=== PATIENT | female | born 1945 | race Caucasian/White ===

== ENCOUNTER → 2016-06-14 | Outpatient (CLI) | payer MEDICARE ==
--- NOTE | 2016-06-14 13:40 | BD ---
EXAMINATION TYPE: MG DEXA axial skeleton. DATE OF EXAM: 06/14/2016 12:32 PM COMPARISON: Prior DEXA bone scan January 16, 2014. CLINICAL HISTORY: post menopausal Height: 5'3 Weight: 127 FRAX RISK QUESTIONS: Alcohol (3 or more units per day): no Family History (Parent hip fracture): yes Glucocorticoids (More than 3mos): no (Ex: prednisone, prednisolone, methylprednisolone, dexamethasone, and hydrocortisone). History of Fracture in Adulthood: no Secondary Osteoporosis: 1. Type 1 Diabetes: no 2. Hyperthyroidism: no 3. Menopause before 45: no 4. Malnutrition: no 5. Chronic liver disease: no Rheumatoid Arthritis: no Current Tobacco Use: no RISK FACTORS HISTORY OF: Family History of Osteoporosis: Postmenopausal woman: MEDICATIONS: Additional Medications: blood pressure, vitamin D Additional History: EXAM MEASUREMENTS: Bone mineral densitometry was performed using the [employer] System. Bone mineral density as measured about the Lumbar spine is: ----- L1-L4(G/cm2): 0.922 T Score Values are as follows: ----- L2: -2.2 ----- L3: -1.6 ----- L4: -2.5 ----- L1-L4:-2.2 Bone mineral density has: Decreased -6.5% since study of: 01/16/2014 Bone mineral density about the R hip (g/cm2): 0.861 Bone mineral density about the L hip (g/cm2): 0.833 T Score values are as follows: -----R Neck: -1.3 -----L Neck: -1.5 -----R Total: -1.8 -----L Total: -1.3 Bone mineral density has: Decreased -8.1% since study of: 01/16/2014 IMPRESSION: Osteopenia (T Score between -2.5 and -1 as noted by T score values persistent low back and both hips. Bone density is decreased or diminished from prior. There is slightly increased risk of fracture and the patient may be considered for treatment. Re-Screen 2-5 years. NOTE: T-SCORE=SD OF THE YOUNG ADULT MEAN.
--- NOTE | 2016-06-14 22:39 | WWHP ---
DATE OF DICTATION: 06/14/2016 CHIEF COMPLAINT: The patient is here for her routine gynecologic exam and mammogram. HISTORY OF PRESENT ILLNESS: This is a 70-year-old G5, P2-1-1-4 with an LMP of 1983. She is status post EVELYN/BSO for benign reasons. The patient is without gynecologic complaints. PAST MEDICAL HISTORY: Chronic hypertension and history of osteopenia. MEDICATIONS: 1. Amlodipine 5/10 one daily. 2. Vitamin D 2000 units daily. ALLERGIES: PENICILLIN, which caused a rash. 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 SOCIAL HISTORY: She denies tobacco, alcohol and drug use. She has been more than 65 years and is retired. Her sister is Jessica Sinha. REVIEW OF SYSTEMS: She has lost about 4 pounds over the last year. She denies respiratory, cardiac or GI problems. She denies maltreatment or falling but did twist an ankle earlier this year. : She denies any significant problems with urinary leakage. PHYSICAL EXAM: Blood pressure 175/92. Height 5 feet 4 inches. Weight 127 pounds. Temperature 98.6, pulse 89. This is a well-developed, well-nourished white female who is alert and oriented x3, in no acute distress. HEENT is within normal limits. NECK: Supple without mass or thyromegaly. CHEST AND LUNGS: Clear to auscultation. HEART: Regular rate and rhythm. Breasts are without mass or discharge. Axillary exam is negative for adenopathy. BACK: Negative for CVA tenderness. ABDOMEN: Soft, nontender, without palpable masses. PELVIC EXAM: External genitalia reveal mild to moderate atrophy without lesions. Vagina reveals mild to moderate atrophy without lesions. There is no evidence of prolapse. Bimanual exam is negative for mass or tenderness. Rectovaginal exam is negative for mass or tenderness and is negative for occult blood. EXTREMITIES: Nontender. IMPRESSION: 1. A 71-year-old menopausal female, status post EVELYN/BSO for benign reasons, with normal gynecologic exam. 2. History of osteopenia. 3. Elevated blood pressure with history of chronic hypertension. PLAN: 1. Pap smears have been discontinued. 2. Self breast examination was discussed. 3. Mammogram will be done today. 4. We discussed her elevated blood pressure. She states she forgot to take her medications and she will do this as soon as possible. She will do home blood pressure monitoring as she has done in the past and follow up with Dr. Brown for elevated blood pressures. 5. Osteoporosis prevention was discussed. Bone density testing will be done today. 6. She does get flu shots in the fall. 7. She will return in one year.
--- NOTE | 2016-06-16 10:35 | MM ---
Reason for exam: screening (asymptomatic). Last mammogram was performed 1 year and 1 month ago. History: Patient is postmenopausal. Family history of breast cancer in maternal cousin and breast cancer in mother at age 75. Excisional biopsy of the left breast. Excisional biopsy of the right breast. Took estrogen for 5 years beginning at age 46. Took progesterone for 2 years beginning at age 46. Physical Findings: A clinical breast exam by your physician is recommended on an annual basis and results should be correlated with mammographic findings. MG 3D Screening Mammo W/Cad Bilateral CC and MLO view(s) were taken. Prior study comparison: May 05, 2015, bilateral MG 3d screening mammo w/cad. January 16, 2014, bilateral MG screening mammo w CAD. December 24, 2012, bilateral digital screening mammo w/CAD. December 23, 2011, bilateral digital screening mammo w/CAD. The breast tissue is heterogeneously dense. This may lower the sensitivity of mammography. No significant changes when compared with prior studies. ASSESSMENT: Negative, BI-RAD 1 RECOMMENDATION: Routine screening mammogram of both breasts in 1 year.
== END | disposition home or self-care (01) ==
LOC: WWCWWP 11:01
PROVIDERS: ATTEND Obstetrics & Gynecology
DX: Z12.31 Encounter for screening mammogram for malignant neoplasm of breast (principal); M85.89 Other specified disorders of bone density and structure, multiple sites
CPT/HCPCS: 77080; 77063; G0202

== ENCOUNTER → 2017-08-01 | Outpatient (CLI) | payer MEDICARE ==
[2017-08-01 13:04] VITALS: BP 152/85; PULSE 98; RESP 18; TEMP 98.4; BMI 22.3
--- NOTE | 2017-08-01 13:26 | P.HPOB ---
History of Present Illness H&P Date: 08/01/17 Chief Complaint: The patient is here for her routine gynecologic exam and mammogram. This is a 72-year-old with an LMP of 1983. She is status post [facility] BSO for benign reasons. The patient is without gynecologic complaints. Review of Systems She is gained 3 pounds over the last year. She denies respiratory, cardiac and G.I. problems. She denies maltreatment or problems with falling. : she denies any significant problems with urinary leakage. Past Medical History Past Medical History: Hypertension Additional Past Medical History / Comment(s): Osteopenia. 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 Colonoscopy 2013(4th). Past Anesthesia/Blood Transfusion Reactions: No Reported Reaction Past Psychological History: No Psychological Hx Reported Smoking Status: Never smoker Past Alcohol Use History: None Reported Past Drug Use History: None Reported Additional History: She is . And is retired. - Past Family History Mother Family Medical History: Cancer (Breast cancer), Diabetes Mellitus Additional Family Medical History / Comment(s): Maternal 1st cousin had breast cancer. Medications and Allergies Home Medications Medication Instructions Recorded Confirmed Type Cholecalciferol [Vitamin D3] 1,000 unit PO DAILY 08/01/17 08/01/17 History amLODIPine BESYLATE/BENAZEPRIL 1 cap PO DAILY 08/01/17 08/01/17 History [amLODIPine BESYLATE/BENAZEPRIL 5-20 mg] Allergies Allergy/AdvReac Type Severity Reaction Status Date / Time Penicillins Allergy Rash/Hives Verified 08/01/17 12:58 Exam - Vital Signs Vital signs: Vital Signs Temp Pulse Resp BP 08/01/17 12:58 98.4 F 98 18 152/85 Intake and Output 07/31/17 08/01/17 08/01/17 22:59 06:59 14:59 Other: Weight 58.967 kg This is a well-developed well-nourished white female who is alert and oriented times 3 in no acute distress. HEENT: Within normal limits. NECK: Supple without mass or thyromegaly. CHEST AND LUNGS: Clear to auscultation. HEART: Regular rate and rhythm. BREASTS: Are without mass or discharge. AXILLARY EXAM: Negative for adenopathy. BACK: Negative for CVA tenderness. ABDOMEN: Soft, nontender, without palpable masses. PELVIC EXAM: External genitalia appears normal with moderate atrophy. Vagina appears normal moderate atrophy. There is no evidence of prolapse. Bimanual examination is negative for mass or tenderness. RECTAL EXAM: Rectovaginal exam is negative for mass or tenderness and is negative for occult blood. EXTREMITIES: Nontender. IMPRESSION: 1. 72-year-old menopausal female status post EVELYN BSO for benign reasons. Normal gynecologic exam. 2. History of osteopenia. PLAN: 1. Pap smears have been discontinued. 2. Self breast awareness was discussed. 3. Screening mammogram will be done today. 4. Osteoporosis prevention was discussed. We will plan a repeating bone density testing in one to 2 years. 5. She does get flu shots in the fall. 6. She will return in one year.
--- NOTE | 2017-08-03 10:43 | MM ---
Reason for exam: screening (asymptomatic). Last mammogram was performed 1 year and 2 months ago. History: Patient is postmenopausal. Family history of breast cancer in maternal cousin and breast cancer in mother at age 75. Excisional biopsy of the left breast. Excisional biopsy of the right breast. Took estrogen for 5 years beginning at age 46. Took progesterone for 2 years beginning at age 46. Physical Findings: A clinical breast exam by your physician is recommended on an annual basis and results should be correlated with mammographic findings. MG 3D Screening Mammo W/Cad Bilateral CC and MLO view(s) were taken. Prior study comparison: June 14, 2016, bilateral MG 3d screening mammo w/cad. May 05, 2015, bilateral MG 3d screening mammo w/cad. The breast tissue is heterogeneously dense. This may lower the sensitivity of mammography. No significant changes when compared with prior studies. ASSESSMENT: Negative, BI-RAD 1 RECOMMENDATION: Routine screening mammogram of both breasts in 1 year.
== END | disposition home or self-care (01) ==
LOC: WWCWWP 12:29
PROVIDERS: ATTEND Obstetrics & Gynecology
DX: Z12.31 Encounter for screening mammogram for malignant neoplasm of breast (principal)
CPT/HCPCS: 77063; 77067

== ENCOUNTER → 2018-07-06 | Outpatient (CLI) | payer MEDICARE ==
[2018-07-06 11:12] LABS: HCT 39.4 % (34.0-46.0); HGB 12.8 gm/dL (11.4-16.0); MCH 30.6 pg (25.0-35.0); MCHC 32.4 g/dL (31.0-37.0); MCV 94.4 fL (80.0-100.0); Platelet Count 238 k/uL (150-450); RBC 4.18 m/uL (3.80-5.40); RDW 12.4 % (11.5-15.5); WBC 6.3 k/uL (3.8-10.6)
[2018-07-06 11:25] LABS: African American GFR (CKD) >90 (>60 ml/min/1.73 sqM); Anion Gap 5 mmol/L; Blood Urea Nitrogen 10 mg/dL (7-17); Carbon Dioxide 29 mmol/L (22-30); Chloride 104 mmol/L (98-107); Glucose 90 mg/dL (74-99); Magnesium 2.1 mg/dL (1.6-2.3); Potassium 4.5 mmol/L (3.5-5.1); Sodium 138 mmol/L (137-145)
== END | disposition home or self-care (01) ==
LOC: LABWHC1 10:30
PROVIDERS: ATTEND Internal Medicine Interventional Cardiology
DX: I10 Essential (primary) hypertension (principal); Z01.812 Encounter for preprocedural laboratory examination; R07.89 Other chest pain; R94.39 Abnormal result of other cardiovascular function study
CPT/HCPCS: 36415; 80051; 82565; 82947; 83735; 84520; 85027

== ENCOUNTER 2018-07-13 06:41 | Day surgery (SDC) | payer MEDICARE ==
[2018-07-11 10:05] VITALS: BMI 21.6
[~2018-07-13 06:41] MED LIST: ALPRAZolam 0.25 MG TAB PO PRN; ALPRAZolam 0.5 MG TAB PO PRN; ASPIRIN 325 MG TAB PO STA; ATORVASTATIN 80 MG TAB PO STA; NITROGLYCERIN SL TABS 0.4 MG TAB SUBLINGUAL PRN; SODIUM CHLORIDE 0.9% 1,000 ML in EMPTY BAG 1 BAG IV ONE
[2018-07-13 07:21] VITALS: RESP 16; TEMP 98.4
[2018-07-13] MEDS ORDERED: LIDOCAINE 1% INJ 10MG/ML (20 ML MDV) ONE (07:30)
[2018-07-13] MEDS ORDERED: VERAPAMIL 2.5 MG/ML 2 ML AMP ONE (07:30)
[2018-07-13] MEDS ORDERED: fentaNYL (PF) 50 MCG/ML 2 ML AMP ONE (07:30)
[2018-07-13] MEDS ORDERED: fentaNYL (PF) 50 MCG/ML 2 ML AMP IVP ONE (07:40)
[2018-07-13] MEDS ORDERED: LIDOCAINE 1% INJ 10MG/ML (20 ML MDV) SQ ONE (07:43)
[2018-07-13] MEDS ORDERED: VERAPAMIL SYRINGE (5 MG/10 ML) INTRAARTER ONE (07:44)
[2018-07-13] MEDS ORDERED: HEPARIN SODIUM 1,000 UN/ML (10ML VL) ONE (07:51)
[2018-07-13] MEDS ORDERED: HEPARIN SODIUM 1,000 UN/ML (10ML VL) IV ONE (07:53)
[2018-07-13] MEDS ORDERED: IOPAMIDOL-370 125ML BTL INJ ONE (08:00)
[2018-07-13] MEDS ORDERED: RX INFO: IV CONTRAST WAS GIVEN 1 EACH MISC MISCELLANE PRN (08:11)
[2018-07-13] MEDS ORDERED: SODIUM CHLORIDE 0.9% 1,000 ML IV SCH (08:15)
--- NOTE | 2018-07-13 08:30 | CC ---
CARDIAC CATHETERIZATION REPORT Mrs. Henao is a 73-year-old female with a history of hypertension who has been complaining of chest discomfort. She underwent a myocardial perfusion imaging, there was evidence of inducible ischemia involving the anteroapical wall. In view of that, recommendation made regarding cardiac catheterization. The procedure, risks and complications were discussed with the patient who is in full understanding and agreement. PROCEDURE: Patient was brought to [facility] in the fasting semi-sedated state after receiving fentanyl and Benadryl and achieving moderate conscious sedated state using Xylocaine anesthesia and Seldinger technique, a 6-Botswanan sheath was introduced in the right radial artery. Selective right and left coronary angiography was performed using 5- B[place]wanan 3.5 bend right and left Carmella catheter. Multiple views of coronary artery including hemiaxial views were obtained. Following that a 5-B[place]wanan tight pigtail catheter was introduced in the left ventricle and a 30 degree SANDOVAL view of the left ventricle was obtained. Following that, catheter and sheaths were removed. Hemostasis was obtained with deployment of a TR band. There was no immediate complication. Patient is returned to her room in stable condition. Of note, the patient received 3500 units of intravenous heparin as well as intra-arterial verapamil. FINDINGS: LEFT MAIN: This is a large-sized vessel, bifurcating into left circumflex, left anterior descending artery. Left main coronary artery has no evidence of high-grade stenosis. LEFT ANTERIOR DESCENDING ARTERY: This is a large-sized vessel, reaching toward the apex with a wraparound apex segment, giving rise to 2 diagonal branch. The left anterior descending artery as well as branches have no evidence of obstructive coronary artery disease. LEFT CIRCUMFLEX: This is a large nondominant vessel, giving rise to a large proximal obtuse marginal branch. The left circumflex as well as branches have no evidence of obstructive coronary artery disease. RIGHT CORONARY ARTERY: This is a large dominant vessel bifurcating distally into PDA and posterolateral segment and branches. The right coronary artery as well as branches have no evidence of significant obstructive coronary artery disease and mild plaque of 10% was noted in the proximal segment. LEFT VENTRICULOGRAM: Left ventriculogram is performed in 30 degree SANDOVAL view, reveals normal left ventricular size and systolic function. Ejection fraction is above 60%. There was no mitral regurgitation. HEMODYNAMICS: There was no gradient across the aortic valve. The left ventricular end- diastolic pressure was 20 to 24 mmHg. CONCLUSION: 1. Normal coronary arteries with minimal plaque in the proximal right coronary artery. 2. Normal left ventricular size and systolic function. RECOMMENDATION: In view of finding anatomy, I recommend continue medical therapy with aggressive coronary risk modifications being initiated. Those findings and recommendation were discussed with the patient and her family, who are in full understanding and agreement. Duration of procedure is 20 minutes. DIONE / KATT: [id number] /
[2018-07-13] MEDS ORDERED: CHOLECALCIFEROL 1,000 UNIT TAB PO SCH (09:00)
[2018-07-13] MEDS ORDERED: NON-FORMULARY DRUG (Vit C/E/Zn/Coppr/Lutein/Zeaxan [Preservision Areds 2 Softgel] 1 EACH) PO SCH (09:00)
[2018-07-13] MEDS ORDERED: NON-FORMULARY DRUG (Amlodipine Besylate/Benazepril [Amlodipine Besylate/Benazepril 5-20 Mg PO SCH (09:00)
[2018-07-13 10:21] VITALS: BP 106/65; PULSE 80
== END 2018-07-13 12:55 | disposition home or self-care (01) ==
LOC: CATHCVL 06:41
PROVIDERS: ATTEND Internal Medicine Interventional Cardiology
DX: I25.10 Atherosclerotic heart disease of native coronary artery without angina pectoris (principal); I10 Essential (primary) hypertension; R07.89 Other chest pain; R94.39 Abnormal result of other cardiovascular function study; Z82.49 Family history of ischemic heart disease and other diseases of the circulatory system; Z88.0 Allergy status to penicillin
CPT/HCPCS: 93458; C1894; C1769; J2001; J3010; J1644; Q9967

== ENCOUNTER → 2018-10-23 | Outpatient (CLI) | payer MEDICARE ==
[2018-10-23 14:06] VITALS: BP 136/87; PULSE 94; RESP 18; TEMP 98.6; BMI 21.9
--- NOTE | 2018-10-23 14:57 | P.HPOB ---
History of Present Illness H&P Date: 10/23/18 Chief Complaint: The patient is here for her routine gynecologic exam and ma mmogram. This is a 73-year-old the with an LMP of 1983. The patient is status posted [facility] BSO for benign reasons. The patient is without gynecologic complaints. Review of Systems The patient's weight has been stable. She denies respiratory, cardiac and G.I. problems. She denies maltreatment or problems with falling. : she denies any significant problems with urinary leakage. Past Medical History Past Medical History: Hypertension Additional Past Medical History / Comment(s): Osteopenia. 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 History of Any Multi-Drug Resistant Organisms: None Reported Past Surgical History: Breast Surgery, Hysterectomy, Tonsillectomy Additional Past Surgical History / Comment(s): [facility] BSO in 1993. Breast biopsies. 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 Colon oscopy 2013(4th). Past Anesthesia/Blood Transfusion Reactions: No Reported Reaction Past Psychological History: No Psychological Hx Reported Smoking Status: Never smoker Past Alcohol Use History: None Reported Past Drug Use History: None Reported Additional History: The patient is and is not sexually active. She is retired. - Past Family History Mother Family Medical History: Cancer, Coronary Artery Disease (CAD), Diabetes Mellitus Additional Family Medical History / Comment(s): Breast cancer. Maternal 1st cousin had breast cancer. Brother(s) Family Medical History: Coronary Artery Disease (CAD) Sister(s) Family Medical History: Coronary Artery Disease (CAD) Medications and Allergies Home Medications Medication Instructions Recorded Confirmed Type Cholecalciferol [Vitamin D3] 1,000 unit PO DAILY 08/01/17 10/23/18 History amLODIPine BESYLATE/BENAZEPRIL 1 cap PO DAILY 08/01/17 10/23/18 History [amLODIPine BESYLATE/BENAZEPRIL 5-20 mg] Vit C/E/Zn/Coppr/Lutein/Zeaxan 1 each PO DAILY 07/11/18 10/23/18 History [Preservision Areds 2 Softgel] Allergies Allergy/AdvReac Type Severity Reaction Status Date / Time Penicillins Allergy Rash/Hives Verified 10/23/18 14:06 Exam Vital Signs Temp Pulse Resp BP Pulse Ox 09/10/19 14:02 98.6 F 94 18 136/87 98 Intake and Output 10/22/18 10/23/18 10/23/18 22:59 06:59 14:59 Other: Weight 58.06 kg Height 5'4", weight 128 pounds, BMI 22.0. This is a well-developed well-nourished white female who is alert and oriented times 3 in no acute distress. HEENT: Within normal limits. NECK: Supple without mass or thyromegaly. CHEST AND LUNGS: Clear to auscultation. HEART: Regular rate and rhythm. BREASTS: Are without mass or discharge. AXILLARY EXAM: Negative for adenopathy. BACK: Negative for CVA tenderness. ABDOMEN: Soft, nontender, without palpable masses. PELVIC EXAM: External genitalia appears normal with mild to moderate atrophy. Vagina appears normal with mild to moderate atrophy. There is no evidence of prolapse. Bimanual examination is negative for mass or tenderness. RECTAL EXAM: Rectovaginal exam is negative for mass or tenderness and is negative for occult blood. EXTREMITIES: Nontender. IMPRESSION: 1. 73-year-old menopausal female status post EVELYN BSO for benign reasons. Normal gynecologic exam. 2. History of osteopenia. PLAN: 1. Pap smears have been discontinued. 2. Self breast awareness was discussed with the patient. 3. Screening mammogram will be done today. 4. Osteoporosis prevention was discussed. I have stressed the importance of adequate calcium, vitamin D and regular exercise. Recommended amounts of calcium and vitamin D were also discussed. Bone density testing will be done today. 5. She plans on getting a flu shot in the near future. 6. The patient was advised to return in 1-2 years for her well woman examination.
--- NOTE | 2018-10-23 16:12 | BD ---
EXAMINATION TYPE: Axial Bone Density DATE OF EXAM: 10/23/2018 COMPARISON: 2017 CLINICAL HISTORY: Z 76.0 Height: 5 FT 4 IN Weight: 128 FRAX RISK QUESTIONS: Family History (Parent hip fracture): MOTHER Secondary Osteoporosis: 3. Menopause before 45: UNSURE RISK FACTORS HISTORY OF: Family History of Osteoporosis: MOTHER Active: YES Postmenopausal woman: BETWEEN AGE 45-50 Take estrogen and/or progesterone medications: TOOK FOR A FEW MONTHS MEDICATIONS: Additional Medications: AMLODIPINE, PRESERVISION, VIT D3 Additional History: EXAM MEASUREMENTS: Bone mineral densitometry was performed using the [employer] System. Bone mineral density as measured about the Lumbar spine is: ----- L1-L4(G/cm2): 0.887 T Score Values are as follows: ----- L2: -2.4 ----- L3: -1.9 ----- L4: -2.7 ----- L1-L4: -2.4 Bone mineral density has: DECREASED -2.9 % since study of: 2016 Bone mineral density about the R hip (g/cm2): 0.907 Bone mineral density about the L hip (g/cm2): 0.818 T Score values are as follows: -----R Neck: -0.9 -----L Neck: -1.6 -----R Total: -1.9 -----L Total: -1.5 Bone mineral density has: DECREASED -2.2 % since study of: 2017 IMPRESSION: Osteopenia (T Score between -2.5 and -1). There is slightly increased risk of fracture and the patient may be considered for treatment. Re-Screen 2-5 years. NOTE: T-SCORE=SD OF THE YOUNG ADULT MEAN.
--- NOTE | 2018-10-25 09:33 | MM ---
Reason for exam: screening (asymptomatic). Last mammogram was performed 1 year and 3 months ago. History: Patient is postmenopausal. Family history of breast cancer in maternal cousin and breast cancer in mother at age 75. Excisional biopsy of the left breast. Excisional biopsy of the right breast. Took estrogen for 5 years beginning at age 46. Took progesterone for 2 years beginning at age 46. Physical Findings: A clinical breast exam by your physician is recommended on an annual basis and results should be correlated with mammographic findings. MG 3D Screening Mammo W/Cad Bilateral CC and MLO view(s) were taken. Prior study comparison: August 01, 2017, bilateral MG 3d screening mammo w/cad. June 14, 2016, bilateral MG 3d screening mammo w/cad. The breast tissue is heterogeneously dense. This may lower the sensitivity of mammography. No significant changes when compared with prior studies. ASSESSMENT: Negative, BI-RAD 1 RECOMMENDATION: Routine screening mammogram of both breasts in 1 year.
--- NOTE | 2018-10-31 10:43 | P.PN ---
Progress Note - Text Progress Note Date: 10/31/18 OUTPATIENT FOLLOW-UP NOTE TEST(S)/RESULTS: test results from 10/23/18 include benign mammogram and bone density test showing osteopenia. METHOD OF NOTIFICATION: the patient was notified by phone. PATIENT COMMENTS: DIAGNOSIS: osteopenia with bone density decrease of approximately 2 to 3% from her previous bone density test. Benign mammogram. DISCUSSION: we discussed the option of medication. At this time we will go without prescription medication. I have stressed the importance of adequate calcium, vitamin D, and regular exercise. PLAN: repeat bone density testing in 2 to 3 years. The patient was advised to return in 1-2 years for her well woman examination.
== END | disposition home or self-care (01) ==
LOC: WWCWWP 13:47
PROVIDERS: ATTEND Obstetrics & Gynecology
DX: Z12.31 Encounter for screening mammogram for malignant neoplasm of breast (principal); M81.8 Other osteoporosis without current pathological fracture; Z90.710 Acquired absence of both cervix and uterus; Z90.722 Acquired absence of ovaries, bilateral
CPT/HCPCS: 77063; 77067; 77080

== ENCOUNTER → 2020-04-03 | Outpatient (CLI) | payer MEDICARE ==
--- NOTE | 2020-04-06 12:04 | MM ---
Reason for exam: screening (asymptomatic). Last mammogram was performed 1 year and 5 months ago. History: Patient is postmenopausal. Family history of breast cancer in maternal cousin and breast cancer in mother at age 75. Excisional biopsy of the left breast. Excisional biopsy of the right breast. Took estrogen for 5 years beginning at age 46. Took progesterone for 2 years beginning at age 46. Physical Findings: A clinical breast exam by your physician is recommended on an annual basis and results should be correlated with mammographic findings. MG 3D Screening Mammo W/Cad Bilateral CC and MLO view(s) were taken. Prior study comparison: October 23, 2018, bilateral MG 3d screening mammo w/cad. August 01, 2017, bilateral MG 3d screening mammo w/cad. The breast tissue is heterogeneously dense. This may lower the sensitivity of mammography. Benign oil cyst calcifications on the right breast. No significant changes when compared with prior studies. ASSESSMENT: Negative, BI-RAD 1 RECOMMENDATION: Routine screening mammogram of both breasts in 1 year.
== END | disposition home or self-care (01) ==
LOC: RADMAMWWP 10:44
PROVIDERS: ATTEND Family Medicine
DX: Z12.31 Encounter for screening mammogram for malignant neoplasm of breast (principal); Z80.3 Family history of malignant neoplasm of breast
CPT/HCPCS: 77063; 77067

== ENCOUNTER → 2021-08-20 | Outpatient (CLI) | payer MEDICARE ==
--- NOTE | 2021-08-20 14:12 | US ---
EXAMINATION TYPE: US thyroid st tissue head/neck DATE OF EXAM: 08/20/2021 COMPARISON: NONE CLINICAL HISTORY: E21.0 PRIMARY HYPERPARATHYROIDISM. GLAND SIZE: Right Lobe: 5.0 x 1.0 x 2.3 cm Overall Parenchyma: homogenous Left Lobe: 4.0 x 1.4 x 1.5 cm Overall Parenchyma: homogeneous Isthmus Thickness: 0.2 cm NODULES RIGHT: # of nodules measured on right: 0 LEFT: # of nodules measured on left: 0 ISTHMUS: # of nodules measured in the isthmus: 0 Bilateral neck scanned, no evidence of lymphadenopathy. Homogeneous normal-sized thyroid without discrete nodule. No suspicious adjacent soft tissue mass to suggest parathyroid adenoma. IMPRESSION: As above
[2021-08-20 18:15] LABS: African American GFR (CKD) 86.9 (60.0-200.0); Albumin 4.5 g/dL (3.8-4.9); Albumin/Globulin Ratio 1.8 (1.60-3.17); Anion Gap 11.4 mmol/L (10.00-18.00); BUN/Creat Ratio 14.06 Ratio (12.00-20.00); Blood Urea Nitrogen 10.7 mg/dL (9.0-27.0); Calcium 10.2 mg/dL (8.7-10.3); Carbon Dioxide 25.5 mmol/L (20.0-27.5); Globulin 2.5 g/dL (1.6-3.3); Potassium 3.9 mmol/L (3.5-5.5); T4, Free (Free Thyroxine) 1.28 ng/dL (0.800-1.800); Total Bilirubin 0.4 mg/dL (0.30-1.20); Total Protein 6.9 g/dL (6.2-8.2)
--- NOTE | 2021-08-21 06:38 | BD ---
EXAMINATION TYPE: Axial Bone Density DATE OF EXAM: 08/20/2021 COMPARISON: 10.23.2018 CLINICAL HISTORY: 76 years year old Female. ICD-10 CODE: E21.0 PRIMARY HYPERPARATHYROIDISM Height: 61 Weight: 108 FRAX RISK QUESTIONS: Family History (Parent hip fracture): YES Secondary Osteoporosis: YES 2. Hyperthyroidism: YES 3. Menopause before 45: YES RISK FACTORS HISTORY OF: Family History of Osteoporosis: YES, MOTHER Postmenopausal woman: AT 43 Take estrogen and/or progesterone medications: FOR FEW MOS ONLY Lost more than 2 inches in height since high school: YES Hyperparathyroidism: YES Adrenal Insufficiency: NO MEDICATIONS: Additional Medications: AMLODIPINE, PRESERVATION, VIT DD, BP MEDS, Additional History: HYPERTENSION, HYPERPARATHYROIDISM, EXAM MEASUREMENTS: Bone mineral densitometry was performed using the [employer] System. Bone mineral density as measured about the Lumbar spine is: ----- L1-L4(G/cm2): 0.805 T Score Values are as follows: ----- L1: -3.4 ----- L2: -3.4 ----- L3: -2.8 ----- L4: -3.1 ----- L1-L4: -3.1 Bone mineral density has: Decreased -9.2% since study of: 10.23.2018 Bone mineral density about the R hip (g/cm2): 0.714 Bone mineral density about the L hip (g/cm2): 0.720 T Score values are as follows: -----R Neck: -1.0 -----L Neck: -2.3 -----R Total: -2.3 -----L Total: -2.3 Bone mineral density has: Decreased -9.9% since study of: 10.23.2018 FRAX%s: The graph provided illustrates a 29.4% chance for a major osteoporotic fx and a 20.3% chance for the hips probability for fx in 10 years time. IMPRESSION: Osteoporosis (T Score less than -2.5). There is increased fracture risk and therapy is usually indicated based on age. Re-Screen 1-2 years. NOTE: T-SCORE=SD OF THE YOUNG ADULT MEAN.
== END | disposition home or self-care (01) ==
LOC: RADUSWWP 13:21
PROVIDERS: ATTEND Internal Medicine Endocrinology, Diabetes & Metabolism
DX: E21.0 Primary hyperparathyroidism (principal); M81.0 Age-related osteoporosis without current pathological fracture
CPT/HCPCS: 76536; 77080; 80053; 82306; 83970; 84439; 84443; 84480

== ENCOUNTER → 2021-09-21 | Outpatient (CLI) | payer MEDICARE ==
[2021-09-21 12:26] LABS: ALT 18 U/L (4-34); AST 30 U/L (14-36); African American GFR (CKD) >90 (>60 ml/min/1.73 sqM); Albumin 4.5 g/dL (3.5-5.0); Albumin/Globulin Ratio 1.5; Alkaline Phosphatase 78 U/L (38-126); Anion Gap 11 mmol/L; Blood Urea Nitrogen 10 mg/dL (7-17); Calcium 10.5 mg/dL (8.4-10.2); Carbon Dioxide 25 mmol/L (22-30); Chloride 101 mmol/L (98-107); Glucose 113 mg/dL (74-99); Non-African American GFR(CKD) 82 (>60 ml/min/1.73 sqM); Potassium 4.6 mmol/L (3.5-5.1); Sodium 137 mmol/L (137-145); Total Bilirubin 0.6 mg/dL (0.2-1.3); Total Protein 7.5 g/dL (6.3-8.2)
--- NOTE | 2021-09-22 10:24 | NM ---
EXAMINATION TYPE: NM parathyroid w/spect DATE OF EXAM: 09/21/2021 COMPARISON: NONE HISTORY: Primary hyperparathyroidism TECHNIQUE: Following administration of 23.4 mCi Tc99m Sestamibi. Anterior projection images of the neck and ches t were obtained 10 minutes and 3.25 hours post injection. SPECT images of the neck and chest were ob tained and reconstructed in three axes. FINDINGS: Thyroid tracer washout: Delayed images demonstrate near-complete tracer washout from the thyroid. Parathyroid uptake: Delayed imaging demonstrates faint uptake in the right thyroid bed. Findings susp icious for Parathyroid adenoma. Normal uptake: There is physiological tracer uptake in the myocardium, liver, salivary glands, and th yroid gland. IMPRESSION: Faint uptake in right thyroid bed suspicious for parathyroid adenoma.
== END | disposition home or self-care (01) ==
LOC: RADNMMAIN 11:03
PROVIDERS: ATTEND Internal Medicine Endocrinology, Diabetes & Metabolism
DX: E21.0 Primary hyperparathyroidism (principal)
CPT/HCPCS: 80053; 83970; 36415; 78071; A9500

== ENCOUNTER → 2021-11-25 | Outpatient (CLI) | payer MEDICARE ==
[2021-11-25 16:21] LABS: Triglycerides 37.3 mg/dL (0.00-149.00)
[2021-11-25 16:36] LABS: Chol/HDL Ratio 1.81 Ratio; LDL Cholesterol,Direct Reflex 64.6 mg/dL (0.00-129.00)
== END | disposition home or self-care (01) ==
LOC: LABWHC1 10:05
PROVIDERS: ATTEND Internal Medicine Interventional Cardiology
DX: E78.2 Mixed hyperlipidemia (principal)
CPT/HCPCS: 36415; 80061; 83721; 84450; 84460

== ENCOUNTER → 2021-11-29 | Outpatient (CLI) | payer MEDICARE ==
[2021-11-29 19:18] LABS: African American GFR (CKD) 81.8 (60.0-200.0); Albumin 4.3 g/dL (3.8-4.9); Albumin/Globulin Ratio 1.43 (1.60-3.17); Anion Gap 11.6 mmol/L (10.00-18.00); BUN/Creat Ratio 13.38 Ratio (12.00-20.00); Blood Urea Nitrogen 10.7 mg/dL (9.0-27.0); Calcium 9.4 mg/dL (8.7-10.3); Carbon Dioxide 25.4 mmol/L (20.0-27.5); Non-African American GFR(CKD) 70.6 (60.0-200.0); Potassium 4.3 mmol/L (3.5-5.5); Total Bilirubin 0.3 mg/dL (0.30-1.20); Total Protein 7.3 g/dL (6.2-8.2)
== END | disposition home or self-care (01) ==
LOC: LABWHC1 10:33
PROVIDERS: ATTEND Internal Medicine Endocrinology, Diabetes & Metabolism
DX: E21.0 Primary hyperparathyroidism (principal)
CPT/HCPCS: 36415; 80053; 82306; 83970

== ENCOUNTER → 2021-12-30 | Outpatient (CLI) | payer MEDICARE ==
[2021-12-30 16:32] LABS: African American GFR (CKD) 92.7 (60.0-200.0); Albumin 4.6 g/dL (3.8-4.9); Albumin/Globulin Ratio 1.83 (1.60-3.17); Anion Gap 11.7 mmol/L (10.00-18.00); BUN/Creat Ratio 13.31 Ratio (12.00-20.00); Blood Urea Nitrogen 9.6 mg/dL (9.0-27.0); Calcium 9.7 mg/dL (8.7-10.3); Carbon Dioxide 26.6 mmol/L (20.0-27.5); Globulin 2.5 g/dL (1.6-3.3); Non-African American GFR(CKD) 79.9 (60.0-200.0); Potassium 4.2 mmol/L (3.5-5.5); Total Bilirubin 0.4 mg/dL (0.30-1.20); Total Protein 7.2 g/dL (6.2-8.2)
== END | disposition home or self-care (01) ==
LOC: LABWHC1 10:06
PROVIDERS: ATTEND Internal Medicine Endocrinology, Diabetes & Metabolism
DX: E21.0 Primary hyperparathyroidism (principal)
CPT/HCPCS: 36415; 80053; 82306; 83970

== ENCOUNTER 2022-02-25 08:54 | Emergency (ER) | payer MEDICARE ==
[2022-02-25 09:12] VITALS: TEMP 97.9
[2022-02-25] MEDS ORDERED: SODIUM CHLORIDE 0.9% 1,000 ML IV STA (10:16)
--- NOTE | 2022-02-25 10:46 | ED ---
Dizziness HPI - General Chief Complaint: Dizziness Stated Complaint: Dizziness Time Seen by Provider: 02/25/22 08:59 Source: EMS Mode of arrival: EMS Limitations: no limitations - History of Present Illness Initial Comments: 26-year-old female presents emergency department reporting dizziness. States that her symptoms started last night. When she gets up to a relates she feels as if she cannot stay balanced. Symptoms were bad last night and then seemed like they improved. She woke up this morning and felt as if she cannot ambulate down the echavarria without holding the railing. She denies vertiginous symptoms. No room spinning. Denies presyncope. Does have some oral tingling. States that she had 3 parathyroid glands removed in November. She denies any headache or visual changes. No history of vertigo. She denies any unilateral numbness, tingling or weakness. No recent head trauma. No chiropractic manipulations to the neck. No other alleviating, preciptating or modifying factors - Related Data Home Medications Medication Instructions Recorded Confirmed Cholecalciferol [Vitamin D3] 1,000 unit PO DAILY 08/01/17 02/25/22 amLODIPine BESYLATE/BENAZEPRIL 1 cap PO DAILY 08/01/17 02/25/22 [amLODIPine BESYLATE/BENAZEPRIL 5-20 mg] Vit C/E/Zn/Coppr/Lutein/Zeaxan 1 each PO DAILY 07/11/18 02/25/22 [Preservision Areds 2 Softgel] Previous Rx's Medication Instructions Recorded Meclizine [Antivert] 25 mg PO TID PRN #25 tab 02/25/22 Allergies Allergy/AdvReac Type Severity Reaction Status Date / Time Penicillins Allergy Rash/Hives Verified 02/25/22 11:11 Review of Systems ROS Statement: Those systems with pertinent positive or pertinent negative responses have been documented in the HPI. ROS Other: All systems not noted in ROS Statement are negative. Past Medical History Past Medical History: Hypertension, Thyroid Disorder Additional Past Medical History / Comment(s): Osteopenia. 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 History of Any Multi-Drug Resistant Organisms: None Reported Past Surgical History: Breast Surgery, Hysterectomy, Tonsillectomy Additional Past Surgical History / Comment(s): [facility] BSO in 1993. Breast biopsies. 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 Colonoscopy 2013(4th). Past Anesthesia/Blood Transfusion Reactions: No Reported Reaction Past Psychological History: No Psychological Hx Reported Smoking Status: Never smoker Past Alcohol Use History: None Reported Past Drug Use History: None Reported - Past Family History Mother Family Medical History: Cancer, Coronary Artery Disease (CAD), Diabetes Mellitus Additional Family Medical History / Comment(s): Breast cancer. Maternal 1st cousin had breast cancer. Brother(s) Family Medical History: Coronary Artery Disease (CAD) Sister(s) Family Medical History: Coronary Artery Disease (CAD) General Exam Limitations: no limitations General appearance: alert, in no apparent distress Head exam: Present: atraumatic, normocephalic, normal inspection Eye exam: Present: normal appearance, PERRL, EOMI. Absent: scleral icterus, conjunctival injection, nystagmus, periorbital swelling ENT exam: Present: normal exam, mucous membranes moist Neck exam: Present: normal inspection. Absent: tenderness, meningismus, lymphadenopathy Respiratory exam: Present: normal lung sounds bilaterally. Absent: respiratory distress, wheezes, rales, rhonchi, stridor Cardiovascular Exam: Present: regular rate, normal rhythm, normal heart sounds. Absent: systolic murmur, diastolic murmur, rubs, gallop, clicks GI/Abdominal exam: Present: soft, normal bowel sounds. Absent: distended, tenderness, guarding, rebound, rigid Extremities exam: Present: normal inspection, full ROM, normal capillary refill. Absent: tenderness, pedal edema, joint swelling, calf tenderness Back exam: Present: normal inspection Neurological exam: Present: alert, oriented X3, CN II-XII intact Psychiatric exam: Present: normal affect, normal mood, other (finger to nose symmetric) Skin exam: Present: warm, dry, intact, normal color. Absent: rash Course Vital Signs 02/25/22 02/25/22 02/25/22 08:55 09:17 09:20 Temperature 97.9 F Pulse Rate 80 Respiratory 18 Rate Blood Pressure 166/89 Blood Pressure 146/82 [Right Arm Sitting] Blood Pressure [Right Arm Standing] Blood Pressure 158/88 [Right Arm Supine] O2 Sat by Pulse 99 Oximetry 02/25/22 02/25/22 02/25/22 09:22 09:30 10:00 Temperature Pulse Rate Respiratory 18 20 Rate Blood Pressure 124/89 Blood Pressure [Right Arm Sitting] Blood Pressure 124/89 [Right Arm Standing] Blood Pressure [Right Arm Supine] O2 Sat by Pulse 97 98 Oximetry 02/25/22 02/25/22 02/25/22 10:30 11:00 12:00 Temperature Pulse Rate 87 Respiratory 19 16 17 Rate Blood Pressure 152/93 151/83 Blood Pressure [Right Arm Sitting] Blood Pressure [Right Arm Standing] Blood Pressure [Right Arm Supine] O2 Sat by Pulse 99 87 L 97 Oximetry 02/25/22 13:00 Temperature Pulse Rate 102 H Respiratory 18 Rate Blood Pressure 113/89 Blood Pressure [Right Arm Sitting] Blood Pressure [Right Arm Standing] Blood Pressure [Right Arm Supine] O2 Sat by Pulse 95 Oximetry EKG Findings - EKG Comments: EKG Findings:: EKG demonstrates sinus rhythm with a rate of 72. MI interval 177. QRS 92. QTC 417. No acute ST segment elevations or depressions Medical Decision Making - Medical Decision Making Was pt. sent in by a medical professional or institution? no Did you speak to anyone other than the patient for history? Did you review nursing and triage notes? yes and I agree Were old charts reviewed? no Differential Diagnosis? MDM Differential Dizziness: Benign paroxysmal positional Vertigo, Menieres disease, otitis media, acoustic neuroma, vertebrobasilar insufficiency, cerebellar stroke, encephalitis, hypovolemic, arrhythmia, coronary artery syndrome, anemia this is not meant to be an all-inclusive list EKG interpreted by me (3pts min.)? yes X-rays interpreted by me (1pt min.)? yes CT interpreted by me (1pt min.)? yes U/S interpreted by me (1pt. min.)? no What testing was considered but not performed? (CT, X-rays, U/S, labs)? Why? none What meds were considered but not given? Why? none Did you discuss the management of the patient with other professionals? no Did you reconcile home meds? no Was smoking cessation discussed for >3mins.? no Was critical care preformed (if so, how long)? no Were there social determinants of health that impacted care today? How? (Homelessness, low income, unemployed, alcoholism, drug addiction, transportation, low edu. Level, literacy, decrease access to med. care, residential, rehab)? no Was there de-escalation of care discussed even if they declined? (Discuss DNR or withdrawal of care, Hospice)? no What co-morbidities impacted this encounter? (DM, HTN, Smoking, COPD, CAD, Cancer, CVA, Hep., AIDS, mental health diagnosis, sleep apnea, morbid obesity)? htn, thyroid disorder Was patient admitted / discharged? Upon arrival patient was placed into room 10. Thorough history of physical exam was performed. IV is established. Laboratory studies are conducted. Patient sent for CT and CT angiography due to reported ataxia. Laboratory studies are reviewed. Calcium, thyroid are within normal limits. CT of the brain and CT angiography demonstrated chronic small vessel ischemia however no acute findings. Results are discussed the patient. She orthostatics are performed and are positive. Patient was given a liter bolus normal saline. She is indurated after fluid administration and states that she feels "100%" improved. Patient feels comfortable with discharge at this time. Patient will be discha rged home to follow up with her primary care doctor in 2-4 days. Return to the emergency room for any new or worsening symptoms. Patient discharged home in stable condition Undiagnosed new problem with uncertain prognosis? yes Drug Therapy requiring intensive monitoring for toxicity (Heparin, Nitro, Insulin, Cardizem)? no Were any procedures done? no Diagnosis/symptom? acute ataxia Acute, or Chronic, or Acute on Chronic? acute Uncomplicated (without systemic symptoms) or Complicated (systemic symptoms)? complicated Side effects of treatment? none Exacerbation, Progression, or Severe Exacerbation] no Poses a threat to life or bodily function? yes - Lab Data Result diagrams: 02/25/22 10:29 02/25/22 10:29 Lab Results 02/25/22 02/25/22 02/25/22 Range/Units 10:29 10:29 10:29 WBC 7.3 (3.8-10.6) k/uL RBC 4.20 (3.80-5.40) m/uL Hgb 13.2 (11.4-16.0) gm/dL Hct 39.5 (34.0-46.0) % MCV 94.0 (80.0-100.0) fL MCH 31.4 (25.0-35.0) pg MCHC 33.4 (31.0-37.0) g/dL RDW 12.3 (11.5-15.5) % Plt Count 199 (150-450) k/uL MPV 7.6 Neutrophils % 83 % Lymphocytes % 10 % Monocytes % 5 % Eosinophils % 1 % Basophils % 1 % Neutrophils # 6.1 (1.3-7.7) k/uL Lymphocytes # 0.7 L (1.0-4.8) k/uL Monocytes # 0.3 (0-1.0) k/uL Eosinophils # 0.1 (0-0.7) k/uL Basophils # 0.1 (0-0.2) k/uL PT 10.3 (9.0-12.0) sec INR 1.0 (<1.2) APTT 21.6 L (22.0-30.0) sec Sodium 138 (137-145) mmol/L Potassium 4.1 (3.5-5.1) mmol/L Chloride 106 (98-107) mmol/L Carbon Dioxide 27 (22-30) mmol/L Anion Gap 5 mmol/L BUN 10 (7-17) mg/dL Creatinine 0.52 (0.52-1.04) mg/dL Est GFR (CKD-EPI)AfAm >90 (>60 ml/min/1.73 sqM) Est GFR (CKD-EPI)NonAf >90 (>60 ml/min/1.73 sqM) Glucose 115 H (74-99) mg/dL Calcium 9.0 (8.4-10.2) mg/dL Ionized Calcium Winsome 4.8 (4.5-5.3) mg/dL Total Bilirubin 0.6 (0.2-1.3) mg/dL AST 30 (14-36) U/L ALT 23 (4-34) U/L Alkaline Phosphatase 67 (38-126) U/L Troponin I (0.000-0.034) ng/mL Total Protein 7.0 (6.3-8.2) g/dL Albumin 4.2 (3.5-5.0) g/dL TSH 0.998 (0.465-4.680) mIU/L Urine Color Urine Appearance (Clear) Urine pH (5.0-8.0) Ur Specific [place] (1.001-1.035) Urine Protein (Negative) Urine Glucose (UA) (Negative) Urine Ketones (Negative) Urine Blood (Negative) Urine Nitrite (Negative) Urine Bilirubin (Negative) Urine Urobilinogen (<2.0) mg/dL Ur Leukocyte Esterase (Negative) 02/25/22 02/25/22 Range/Units 10:29 10:29 WBC (3.8-10.6) k/uL RBC (3.80-5.40) m/uL Hgb (11.4-16.0) gm/dL Hct (34.0-46.0) % MCV (80.0-100.0) fL MCH (25.0-35.0) pg MCHC (31.0-37.0) g/dL RDW (11.5-15.5) % Plt Count (150-450) k/uL MPV Neutrophils % % Lymphocytes % % Monocytes % % Eosinophils % % Basophils % % Neutrophils # (1.3-7.7) k/uL Lymphocytes # (1.0-4.8) k/uL Monocytes # (0-1.0) k/uL Eosinophils # (0-0.7) k/uL Basophils # (0-0.2) k/uL PT (9.0-12.0) sec INR (<1.2) APTT (22.0-30.0) sec Sodium (137-145) mmol/L Potassium (3.5-5.1) mmol/L Chloride (98-107) mmol/L Carbon Dioxide (22-30) mmol/L Anion Gap mmol/L BUN (7-17) mg/dL Creatinine (0.52-1.04) mg/dL Est GFR (CKD-EPI)AfAm (>60 ml/min/1.73 sqM) Est GFR (CKD-EPI)NonAf (>60 ml/min/1.73 sqM) Glucose (74-99) mg/dL Calcium (8.4-10.2) mg/dL Ionized Calcium Winsome (4.5-5.3) mg/dL Total Bilirubin (0.2-1.3) mg/dL AST (14-36) U/L ALT (4-34) U/L Alkaline Phosphatase (38-126) U/L Troponin I <0.012 (0.000-0.034) ng/mL Total Protein (6.3-8.2) g/dL Albumin (3.5-5.0) g/dL TSH (0.465-4.680) mIU/L Urine Color Light Yellow Urine Appearance Clear (Clear) Urine pH 8.0 (5.0-8.0) Ur Specific [place] 1.009 (1.001-1.035) Urine Protein Negative (Negative) Urine Glucose (UA) Negative (Negative) Urine Ketones Negative (Negative) Urine Blood Negative (Negative) Urine Nitrite Negative (Negative) Urine Bilirubin Negative (Negative) Urine Urobilinogen <2.0 (<2.0) mg/dL Ur Leukocyte Esterase Negative (Negative) Disposition Clinical Impression: Orthostatic hypotension, Dizziness Disposition: HOME SELF-CARE Condition: Stable Instructions (If sedation given, give patient instructions): Dizziness (ED) Additional Instructions: Please try the medications at home. If you have recurrence of your symptoms, please return to the emergency department for neurology evaluation Prescriptions: Meclizine [Antivert] 25 mg PO TID PRN #25 tab PRN Reason: Vertigo Is patient prescribed a controlled substance at d/c from ED?: No Referrals: Keenan Brown DO [Primary Care Provider] - 1-2 days Time of Disposition: 13:16
[2022-02-25 10:53] LABS: Basophils # (A) 0.1 k/uL (0-0.2); Basophils % (A) 1 %; Eosinophils # (A) 0.1 k/uL (0-0.7); Eosinophils % (A) 1 %; HCT 39.5 % (34.0-46.0); HGB 13.2 gm/dL (11.4-16.0); Lymphocytes # (A) 0.7 k/uL (1.0-4.8); Lymphocytes % (A) 10 %; MCH 31.4 pg (25.0-35.0); MCHC 33.4 g/dL (31.0-37.0); Mean Platelet Volume 7.6; Monocytes # (A) 0.3 k/uL (0-1.0); Monocytes % (A) 5 %; Neutrophils # (A) 6.1 k/uL (1.3-7.7); Neutrophils % (A) 83 %; Platelet Count 199 k/uL (150-450); RDW 12.3 % (11.5-15.5); WBC 7.3 k/uL (3.8-10.6)
[2022-02-25 10:54] LABS: Appearance,Urine Clear (Clear); Bilirubin,Urine Negative (Negative); Blood,Urine Negative (Negative); Color,Urine Light Yellow; Glucose,Urine (UA) Negative (Negative); Ketones,Urine Negative (Negative); Leukocyte Esterase,Urine Negative (Negative); Nitrite,Urine Negative (Negative); Protein,Urine Negative (Negative); Specific Gravity,Urine 1.009 (1.001-1.035); Urobilinogen,Urine <2.0 mg/dL (<2.0)
--- NOTE | 2022-02-25 10:55 | XR ---
EXAMINATION TYPE: XR chest 2V DATE OF EXAM: 02/25/2022 10:52 AM COMPARISON: None TECHNIQUE: XR chest 2V Frontal and lateral views of the chest. CLINICAL INDICATION:Female, 76 years old with history of dizzy; FINDINGS: Lungs/Pleura: There is flattening of the diaphragm with increased lucency of the lungs. No evidence o f pneumothorax, pleural effusion or focal consolidation. Chronic senescent changes. Pulmonary vascularity: Unremarkable. Heart/mediastinum: Cardiomediastinal silhouette is mildly enlarged. Musculoskeletal: No acute osseous pathology. IMPRESSION: 1. No acute cardiopulmonary disease/process. 2. COPD changes. 3. Mild cardiomegaly.
[2022-02-25 11:07] LABS: Prothrombin Time 10.3 sec (9.0-12.0)
[2022-02-25 11:08] LABS: Ionized Calcium 4.8 mg/dL (4.5-5.3)
[2022-02-25 11:11] LABS: ALT 23 U/L (4-34); AST 30 U/L (14-36); African American GFR (CKD) >90 (>60 ml/min/1.73 sqM); Albumin 4.2 g/dL (3.5-5.0); Alkaline Phosphatase 67 U/L (38-126); Anion Gap 5 mmol/L; Blood Urea Nitrogen 10 mg/dL (7-17); Carbon Dioxide 27 mmol/L (22-30); Chloride 106 mmol/L (98-107); Glucose 115 mg/dL (74-99); Non-African American GFR(CKD) >90 (>60 ml/min/1.73 sqM); Potassium 4.1 mmol/L (3.5-5.1); Sodium 138 mmol/L (137-145); Total Bilirubin 0.6 mg/dL (0.2-1.3)
[2022-02-25 11:28] LABS: Partial Thromboplastin Time 21.6 sec (22.0-30.0)
--- NOTE | 2022-02-25 12:16 | CT ---
EXAMINATION TYPE: CT brain wo con DATE OF EXAM: 02/25/2022 COMPARISON: None HISTORY: 76-year-old female ataxia TECHNIQUE: Examination was done in axial plane without intravenous contrast. Coronal and sagittal r econstructions performed. CT DLP: 1103.6 mGycm Automated exposure control for dose reduction was used. FINDINGS: There is no evidence of acute intracranial hemorrhage, acute ischemic changes, mass, mass-effect, or extra-axial fluid collection. There is no effacement of cerebral sulci or basal subarachnoid cister ns. There is no hydrocephalus. There is no midline shift. Dunn-white matter distinction is preserv ed. Mild periventricular white matter hypodensity. Mild mucosal thickening posterior right ethmoid air cells. Mastoid air cells well pneumatized. Orbits and globes are intact. IMPRESSION: Mild burden of chronic small vessel ischemic disease. No acute intracranial abnormality seen.
--- NOTE | 2022-02-25 12:27 | CT ---
EXAMINATION TYPE: CT angio head neck DATE OF EXAM: 02/25/2022 COMPARISON: CT brain same day HISTORY: 76-year-old female ataxia TECHNIQUE: Contiguous axial scanning of the had a neck performed with IV Contrast, patient injected w ith 65 mL of Isovue 370. Coronal/sagittal MIP reconstructions performed. 3-D reconstructions generate d on a dedicated independent workstation. CT DLP: 326.6 mGycm Automated exposure control for dose reduction was used. FINDINGS: Neck: Mild aneurysm proximal arch is 4.0 cm. There is conventional arch vessel branching anatomy. Biapical pleural parenchymal scarring. Asymmetric thickening along the right lateral half of the epig lottis asymmetrically effacing the vallecular space, series 404 axial image 351. Mild atherosclerotic narrowing at the origin of the right vertebral artery. The right vertebral arter y is slightly more dominant but both vessels are otherwise patent throughout the course. The right common and right internal carotid arteries are widely patent. No significant narrowing by N ASCET criteria. The left common and internal carotid arteries are widely patent by NASCET criteria. Head: The nondominant left vertebral artery becomes hypoplastic at the V4 segment. The right vertebral padma ry also becomes smaller in caliber after the PICA takeoff. Basilar artery is diminutive in caliber and we note a persistent origin of the bilateral document controller ior cerebral arteries. Mild atherosclerotic changes within the left greater than right carotid siphons. Hypoplastic A1 segment left anterior cerebral artery. Otherwise, there are circulation is patent. No aneurysmal change is seen. Dural venous sinuses are patent. IMPRESSION: NECK: 1. 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 2. DOMINANT RIGHT VERTEBRAL ARTERY. MILD NARROWING AT THE VESSEL ORIGIN. 3. OTHERWISE, WIDELY PATENT VERTEBRAL AND CAROTID ARTERIES OF THE NECK. 4. SOME ASYMMETRIC THICKENING INVOLVING THE RIGHT LATERAL HALF OF THE EPIGLOTTIS MAY REPRESENT ADHERE NT MUCUS/DEBRIS. CORRELATE WITH DIRECT INSPECTION TO EXCLUDE A MUCOSAL LESION. HEAD: 5. 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 CORRELATE FOR ANY CHRONIC SYMPTOMS OF VERTEBROBASILAR INSUF FICIENCY. 6. OTHERWISE, NO LARGE VESSEL INTRACRANIAL ARTERIAL OCCLUSION, SIGNIFICANT STENOSIS, OR ANEURYSMAL CH ANGES SEEN.
[2022-02-25 13:21] VITALS: BP 113/89; PULSE 102; RESP 18
== END 2022-02-25 13:28 | disposition home or self-care (01) ==
LOC: EC 08:54
DX: R42 Dizziness and giddiness (principal); I95.1 Orthostatic hypotension; Z88.0 Allergy status to penicillin
CPT/HCPCS: 99285 ×2; 96360 ×2; 96361 ×3; 36415; 93005; 80053; 84443; 82330; 84484; 85025; 85610; 85730; 81003; 71046; 70496; 70450; 70498; Q9967

== ENCOUNTER 2022-05-15 12:23 | Emergency (ER) | payer MEDICARE ==
[2022-05-15 12:33] VITALS: TEMP 98
--- NOTE | 2022-05-15 12:46 | ED ---
General Adult HPI - General Chief complaint: Dizziness Stated complaint: Dizziness,Near Syncope Time Seen by Provider: 05/15/22 12:30 Source: patient, RN notes reviewed, old records reviewed Mode of arrival: EMS Limitations: no limitations - History of Present Illness Initial comments: This is a 68-year-old female presents emergency department stating that she was discharged in a very long masses standing for very long time which became lightheaded and it got progressively worse since she's finally sat down and she almost passed out. Patient states this has happened to her once before and she had come to the ER that time and they're unable to find anything wrong. Patient denies any pain patient denies any shortness of breath. Patient denies any headache patient denies being lightheaded currently. Patient denies any recent fever chills or cough per patient denies any recent nausea vomiting diarrhea per patient denies any swelling to legs or calf tenderness. - Related Data Home Medications Medication Instructions Recorded Confirmed Cholecalciferol [Vitamin D3] 1,000 unit PO DAILY 08/01/17 02/25/22 amLODIPine BESYLATE/BENAZEPRIL 1 cap PO DAILY 08/01/17 02/25/22 [amLODIPine BESYLATE/BENAZEPRIL 5-20 mg] Vit C/E/Zn/Coppr/Lutein/Zeaxan 1 each PO DAILY 07/11/18 02/25/22 [Preservision Areds 2 Softgel] Previous Rx's Medication Instructions Recorded Meclizine [Antivert] 25 mg PO TID PRN #25 tab 02/25/22 Allergies Allergy/AdvReac Type Severity Reaction Status Date / Time Penicillins Allergy Rash/Hives Verified 02/25/22 11:11 Review of Systems ROS Statement: Those systems with pertinent positive or pertinent negative responses have been documented in the HPI. ROS Other: All systems not noted in ROS Statement are negative. Past Medical History Past Medical History: Hypertension, Thyroid Disorder Additional Past Medical History / Comment(s): Osteopenia. 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 History of Any Multi-Drug Resistant Organisms: None Reported Past Surgical History: Breast Surgery, Hysterectomy, Tonsillectomy Additional Past Surgical History / Comment(s): EVELYN BSO in 1993. Breast biopsies. 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 Colonoscopy 2013(4th). Past Anesthesia/Blood Transfusion Reactions: No Reported Reaction Past Psychological History: No Psychological Hx Reported Smoking Status: Never smoker Past Alcohol Use History: None Reported Past Drug Use History: None Reported - Past Family History Mother Family Medical History: Cancer, Coronary Artery Disease (CAD), Diabetes Mellitus Additional Family Medical History / Comment(s): Breast cancer. Maternal 1st cousin had breast cancer. Brother(s) Family Medical History: Coronary Artery Disease (CAD) Sister(s) Family Medical History: Coronary Artery Disease (CAD) General Exam - General Exam Comments Initial Comments: GENERAL: Patient is well-developed and well-nourished. Patient is nontoxic and well- hydrated and is in mild distress. ENT: Neck is soft and supple. No significant lymphadenopathy is noted. Oropharynx is clear. Moist mucous membranes. Neck has full range of motion without eliciting any pain. EYES: The sclera were anicteric and conjunctiva were pink and moist. Extraocular movements were intact and pupils were equal round and reactive to light. Eyelids were unremarkable. PULMONARY: Unlabored respirations. Good breath sounds bilaterally. No audible rales rhonchi or wheezing was noted. CARDIOVASCULAR: There is a regular rate and rhythm without any murmurs gallops or rubs. ABDOMEN: Soft and nontender with normal bowel sounds. SKIN: Skin is clear with no lesions or rashes and otherwise unremarkable. NEUROLOGIC: Patient is alert and oriented x3. Cranial nerves II through XII are grossly intact. Motor and sensory are also intact. Normal speech, volume and content. Symmetrical smile. MUSCULOSKELETAL: Normal extremities with adequate strength and full range of motion. LYMPHATICS: No significant lymphadenopathy is noted PSYCHIATRIC: Normal psychiatric evaluation. Limitations: no limitations Course Vital Signs 05/15/22 05/15/22 05/15/22 12:30 12:33 12:40 Temperature 98 F Pulse Rate 79 78 72 Respiratory 16 16 16 Rate Blood Pressure 139/82 139/82 135/72 O2 Sat by Pulse 100 99 100 Oximetry 05/15/22 05/15/22 05/15/22 12:42 12:45 13:33 Temperature Pulse Rate 77 85 80 Respiratory 16 16 16 Rate Blood Pressure 131/85 122/88 120/80 O2 Sat by Pulse 98 100 99 Oximetry 05/15/22 14:00 Temperature 98 F Pulse Rate 84 Respiratory 20 Rate Blood Pressure 148/87 O2 Sat by Pulse 99 Oximetry Medical Decision Making - Medical Decision Making EKG was interpreted by myself. Shows a sinus rhythm at 74 bpm OR interval 186 QRS is 95 Q-T intervals 412 QTC is 429. Patient's EKG shows no ST segment elevation or depression. Was pt. sent in by a medical professional or institution (, JACLYN, CABLE INSTALLER, urgent care, hospital, or alf...) When possible be specific @ -No Did you speak to anyone other than the patient for history (EMS, parent, family, police, friend...)? What history was obtained from this source @ -No Did you review nursing and triage notes (agree or disagree)? Why? @ -I reviewed and agree with nursing and triage notes Were old charts reviewed (outside hosp., previous admission, EMS record, old EKG, old radiological studies, urgent care reports/EKG's, alf records)? Report findings @ -. Patient's prior charts a prior lab work Differential Diagnosis (chest pain, altered mental status, abdominal pain women, abdominal pain men, vaginal bleeding, weakness, fever, dyspnea, syncope, headache, dizziness, GI bleed, back pain, seizure, CVA, palpatations, mental health, musculoskeletal)? @ -Differential Syncope: Valvular disease, hypertrophic cardiomyopathy, pulmonary embolism, tamponade, tachycardia, bradycardia, CO, hypovolemia, hemorrhage, dissection, anemia, intracranial hemorrhage, seizure, hypoglycemia, carbon monoxide poisoning, this is not meant to be an all-inclusive list. EKG interpreted by me (3pts min.). @ -As above X-rays interpreted by me (1pt min.). @ -Chest x-ray was interpreted by myself showed no acute abnormality. CT interpreted by me (1pt min.). @ -None done U/S interpreted by me (1pt. min.). @ -None done What testing was considered but not performed or refused? (CT, X-rays, U/S, lab s)? Why? @ -None What meds were considered but not given or refused? Why? @ -None Did you discuss the management of the patient with other professionals (professionals i.e. JACLYN Moore, CABLE INSTALLER, lab, RT, psych nurse, manager social work, test and balance engineer, teacher, chief program officer, manager of case management)? Give summary @ -No Was smoking cessation discussed for >3mins.? @ -No Was critical care preformed (if so, how long)? @ -No Were there social determinants of health that impacted care today? How? (Homelessness, low income, unemployed, alcoholism, drug addiction, transportation, low edu. Level, literacy, decrease access to med. care, alf, rehab)? @ -No Was there de-escalation of care discussed even if they declined (Discuss DNR or withdrawal of care, Hospice)? DNR status @ -No What co-morbidities impacted this encounter? (DM, HTN, Smoking, COPD, CAD, Cancer, CVA, ARF, Chemo, Hep., AIDS, mental health diagnosis, sleep apnea, morbid obesity)? @ -None Was patient admitted / discharged? Hospital course, mention meds given and route, prescriptions, significant lab abnormalities, going to OR and other pertinent info. @ -Patient was asymptomatic since she arrived at the emergency arm. Orthostatics were negative. Patient states when she started feeling a little lightheaded and she became very nervous and thinks that contributed the problem today. Patient was given a liter of fluid lab work was done and looks essentially normal she's feeling better she was able to ambulate around the emergency department without problem. Patient will be discharged home. Undiagnosed new problem with uncertain prognosis? @ -No Drug Therapy requiring intensive monitoring for toxicity (Heparin, Nitro, Insulin, Cardizem)? @ -No Were any procedures done? @ -No Diagnosis/symptom? @ -Near syncope Acute, or Chronic, or Acute on Chronic? @ -Acute Uncomplicated (without systemic symptoms) or Complicated (systemic symptoms)? @ -Complicated Side effects of treatment? @ -No Exacerbation, Progression, or Severe Exacerbation? @ -No Poses a threat to life or bodily function? How? (Chest pain, USA, CO, pneumonia, PE, COPD, DKA, ARF, appy, cholecystitis, CVA, Diverticulitis, Homicidal, Suicid al, threat to staff... and all critical care pts) @ -No - Lab Data Result diagrams: 05/15/22 12:43 05/15/22 12:43 Lab Results 05/15/22 05/15/22 05/15/22 Range/Units 12:43 12:43 12:43 WBC 7.2 (3.8-10.6) k/uL RBC 4.02 (3.80-5.40) m/uL Hgb 12.6 (11.4-16.0) gm/dL Hct 37.8 (34.0-46.0) % MCV 94.0 (80.0-100.0) fL MCH 31.4 (25.0-35.0) pg MCHC 33.4 (31.0-37.0) g/dL RDW 12.7 (11.5-15.5) % Plt Count 198 (150-450) k/uL MPV 8.4 Neutrophils % 71 % Lymphocytes % 21 % Monocytes % 5 % Eosinophils % 1 % Basophils % 1 % Neutrophils # 5.1 (1.3-7.7) k/uL Lymphocytes # 1.5 (1.0-4.8) k/uL Monocytes # 0.3 (0-1.0) k/uL Eosinophils # 0.1 (0-0.7) k/uL Basophils # 0.1 (0-0.2) k/uL PT 10.6 (9.0-12.0) sec INR 1.0 (<1.2) APTT 20.2 L (22.0-30.0) sec Sodium 137 (137-145) mmol/L Potassium 4.2 (3.5-5.1) mmol/L Chloride 103 (98-107) mmol/L Carbon Dioxide 27 (22-30) mmol/L Anion Gap 7 mmol/L BUN 15 (7-17) mg/dL Creatinine 0.61 (0.52-1.04) mg/dL Est GFR (CKD-EPI)AfAm >90 (>60 ml/min/1.73 sqM) Est GFR (CKD-EPI)NonAf 87 (>60 ml/min/1.73 sqM) Glucose 133 H (74-99) mg/dL Calcium 9.0 (8.4-10.2) mg/dL Magnesium 2.0 (1.6-2.3) mg/dL Total Bilirubin 0.6 (0.2-1.3) mg/dL AST 28 (14-36) U/L ALT 22 (4-34) U/L Alkaline Phosphatase 63 (38-126) U/L Troponin I (0.000-0.034) ng/mL Total Protein 6.7 (6.3-8.2) g/dL Albumin 3.9 (3.5-5.0) g/dL Urine Color Urine Appearance (Clear) Urine pH (5.0-8.0) Ur Specific [place] (1.001-1.035) Urine Protein (Negative) Urine Glucose (UA) (Negative) Urine Ketones (Negative) Urine Blood (Negative) Urine Nitrite (Negative) Urine Bilirubin (Negative) Urine Urobilinogen (<2.0) mg/dL Ur Leukocyte Esterase (Negative) 05/15/22 05/15/22 Range/Units 12:43 13:53 WBC (3.8-10.6) k/uL RBC (3.80-5.40) m/uL Hgb (11.4-16.0) gm/dL Hct (34.0-46.0) % MCV (80.0-100.0) fL MCH (25.0-35.0) pg MCHC (31.0-37.0) g/dL RDW (11.5-15.5) % Plt Count (150-450) k/uL MPV Neutrophils % % Lymphocytes % % Monocytes % % Eosinophils % % Basophils % % Neutrophils # (1.3-7.7) k/uL Lymphocytes # (1.0-4.8) k/uL Monocytes # (0-1.0) k/uL Eosinophils # (0-0.7) k/uL Basophils # (0-0.2) k/uL PT (9.0-12.0) sec INR (<1.2) APTT (22.0-30.0) sec Sodium (137-145) mmol/L Potassium (3.5-5.1) mmol/L Chloride (98-107) mmol/L Carbon Dioxide (22-30) mmol/L Anion Gap mmol/L BUN (7-17) mg/dL Creatinine (0.52-1.04) mg/dL Est GFR (CKD-EPI)AfAm (>60 ml/min/1.73 sqM) Est GFR (CKD-EPI)NonAf (>60 ml/min/1.73 sqM) Glucose (74-99) mg/dL Calcium (8.4-10.2) mg/dL Magnesium (1.6-2.3) mg/dL Total Bilirubin (0.2-1.3) mg/dL AST (14-36) U/L ALT (4-34) U/L Alkaline Phosphatase (38-126) U/L Troponin I <0.012 (0.000-0.034) ng/mL Total Protein (6.3-8.2) g/dL Albumin (3.5-5.0) g/dL Urine Color Light Yellow Urine Appearance Clear (Clear) Urine pH 7.5 (5.0-8.0) Ur Specific [place] 1.008 (1.001-1.035) Urine Protein Negative (Negative) Urine Glucose (UA) Negative (Negative) Urine Ketones Trace H (Negative) Urine Blood Negative (Negative) Urine Nitrite Negative (Negative) Urine Bilirubin Negative (Negative) Urine Urobilinogen <2.0 (<2.0) mg/dL Ur Leukocyte Esterase Negative (Negative) Disposition Clinical Impression: Near syncope Disposition: ADMITTED IP TO THIS [facility] Instructions (If sedation given, give patient instructions): Near Syncope (ED) Referrals: Keenan Brown DO [Primary Care Provider] - 1-2 days Time of Disposition: 14:25
[2022-05-15] MEDS ORDERED: SODIUM CHLORIDE 0.9% 1,000 ML IV ONE (12:54)
[2022-05-15 13:05] LABS: Basophils # (A) 0.1 k/uL (0-0.2); Basophils % (A) 1 %; Eosinophils # (A) 0.1 k/uL (0-0.7); Eosinophils % (A) 1 %; HCT 37.8 % (34.0-46.0); HGB 12.6 gm/dL (11.4-16.0); Lymphocytes # (A) 1.5 k/uL (1.0-4.8); Lymphocytes % (A) 21 %; MCH 31.4 pg (25.0-35.0); MCHC 33.4 g/dL (31.0-37.0); Mean Platelet Volume 8.4; Monocytes # (A) 0.3 k/uL (0-1.0); Monocytes % (A) 5 %; Neutrophils # (A) 5.1 k/uL (1.3-7.7); Neutrophils % (A) 71 %; Platelet Count 198 k/uL (150-450); RBC 4.02 m/uL (3.80-5.40); RDW 12.7 % (11.5-15.5); WBC 7.2 k/uL (3.8-10.6)
[2022-05-15 13:11] LABS: ALT 22 U/L (4-34); AST 28 U/L (14-36); African American GFR (CKD) >90 (>60 ml/min/1.73 sqM); Albumin 3.9 g/dL (3.5-5.0); Alkaline Phosphatase 63 U/L (38-126); Anion Gap 7 mmol/L; Blood Urea Nitrogen 15 mg/dL (7-17); Carbon Dioxide 27 mmol/L (22-30); Chloride 103 mmol/L (98-107); Glucose 133 mg/dL (74-99); Non-African American GFR(CKD) 87 (>60 ml/min/1.73 sqM); Potassium 4.2 mmol/L (3.5-5.1); Sodium 137 mmol/L (137-145); Total Bilirubin 0.6 mg/dL (0.2-1.3); Total Protein 6.7 g/dL (6.3-8.2)
[2022-05-15 13:19] LABS: Prothrombin Time 10.6 sec (9.0-12.0)
[2022-05-15 13:27] LABS: Partial Thromboplastin Time 20.2 sec (22.0-30.0)
--- NOTE | 2022-05-15 13:32 | XR ---
EXAMINATION TYPE: XR chest 2V DATE OF EXAM: 05/15/2022 COMPARISON: Chest x-ray February 25, 2022 HISTORY: Chest pain. TECHNIQUE: Frontal and lateral views of the chest are obtained. FINDINGS: Mild to moderate biapical pleural/parenchymal scarring redemonstrated. There is no suspici ous focal air space opacity, pleural effusion, or pneumothorax seen. The cardiac silhouette size is stable and mildly enlarged. The osseous structures are intact. IMPRESSION: Mild cardiomegaly without acute pulmonary process. No significant change from prior.
[2022-05-15 13:56] LABS: Appearance,Urine Clear (Clear); Bilirubin,Urine Negative (Negative); Blood,Urine Negative (Negative); Color,Urine Light Yellow; Glucose,Urine (UA) Negative (Negative); Ketones,Urine Trace (Negative); Leukocyte Esterase,Urine Negative (Negative); Nitrite,Urine Negative (Negative); PH, Urine 7.5 (5.0-8.0); Protein,Urine Negative (Negative); Specific Gravity,Urine 1.008 (1.001-1.035); Urobilinogen,Urine <2.0 mg/dL (<2.0)
[2022-05-15 14:49] VITALS: BP 138/80; PULSE 75; RESP 16
== END 2022-05-15 14:49 | disposition other institution (70) ==
LOC: EC 12:23
DX: R55 Syncope and collapse (principal); I10 Essential (primary) hypertension; Z90.89 Acquired absence of other organs; Z90.710 Acquired absence of both cervix and uterus; Z88.0 Allergy status to penicillin; Z79.899 Other long term (current) drug therapy; Z90.3 Acquired absence of stomach [part of]
CPT/HCPCS: 36415; 71046; 80053; 81003; 83735; 84484; 85025; 85610; 85730; 93005; 96360; 99285

== ENCOUNTER → 2022-06-30 | Outpatient (CLI) | payer MEDICARE ==
[2022-06-30 21:37] LABS: African American GFR (CKD) 95.5 (60.0-200.0); Albumin 4.7 g/dL (3.8-4.9); Albumin/Globulin Ratio 1.57 (1.60-3.17); BUN/Creat Ratio 17.43 Ratio (12.00-20.00); Blood Urea Nitrogen 12.2 mg/dL (9.0-27.0); Calcium 9.8 mg/dL (8.7-10.3); Non-African American GFR(CKD) 82.4 (60.0-200.0); Potassium 4.4 mmol/L (3.5-5.5); Total Bilirubin 0.5 mg/dL (0.30-1.20); Total Protein 7.7 g/dL (6.2-8.2)
== END | disposition home or self-care (01) ==
LOC: LABWHC1 10:47
PROVIDERS: ATTEND Internal Medicine Endocrinology, Diabetes & Metabolism
DX: E21.0 Primary hyperparathyroidism (principal)
CPT/HCPCS: 36415; 80053; 82306; 83970

== ENCOUNTER → 2022-08-29 | Outpatient (CLI) | payer MEDICARE ==
--- NOTE | 2022-08-29 15:46 | MR ---
EXAMINATION TYPE: MR brain and iac wo/w con DATE OF EXAM: 08/29/2022 2:12 PM COMPARISON: NONE HISTORY: Hearing loss TECHNIQUE: Multiplanar and multispin-echo imaging of the brain was performed both before and after the administr ation of contrast. High-resolution images are obtained of the internal auditory canals performed uti lizing 5 mL intravenous Gadavist contrast. The ventricles, basal cisterns and sulci overlying the cerebral convexities are mildly enlarged for t he patient's age group. There is no evidence for midline shift or mass effect. Acute intracranial he morrhage or extra-axial collection is not evident. There is evidence of periventricular white matter ischemic demyelination or remote deep white matter insults not unusual for the patient's age group. No evidence for acute edema on diffusion-weighted im aging. High-resolution imaging of the internal auditory canals fails demonstrate evidence for an enhancing a coustic schwannoma or cerebellopontine cistern angle mass. Following contrast administration, there is no evidence for pathologic enhancement or enhancing mass. The paranasal sinuses and mastoid air cells are well-aerated. IMPRESSION: 1. No evidence of acoustic schwannoma or cerebellopontine angle mass.
== END | disposition home or self-care (01) ==
LOC: RADMRIMAIN 13:12
PROVIDERS: ATTEND Otolaryngology
DX: R42 Dizziness and giddiness (principal)
CPT/HCPCS: 70553; A9585

== ENCOUNTER → 2022-11-24 | Outpatient (CLI) | payer MEDICARE ==
[2022-11-24 16:46] LABS: ALT 18 U/L (8-44); AST 23 U/L (13-35); Chol/HDL Ratio 2.07 Ratio; LDL Cholesterol,Calculated 70.1 mg/dL (0.0-131.0); VLDL Calculation 10.48 mg/dL (5.00-40.00)
== END | disposition home or self-care (01) ==
LOC: LABWHC1 09:52
PROVIDERS: ATTEND Internal Medicine Interventional Cardiology
DX: E78.2 Mixed hyperlipidemia (principal)
CPT/HCPCS: 36415; 80061; 84450; 84460

== ENCOUNTER 2023-01-29 13:19 | Emergency (ER) | payer MEDICARE ==
[2023-01-29 13:49] VITALS: TEMP 98.4
--- NOTE | 2023-01-29 14:10 | ED ---
Dizziness HPI - General Chief Complaint: Dizziness Stated Complaint: Near Syncope Time Seen by Provider: 01/29/23 13:48 Source: patient, RN notes reviewed, old records reviewed Mode of arrival: ambulatory Limitations: no limitations - History of Present Illness Initial Comments: This is a 77-year-old female DF for evaluation of dizziness, patient fell she was given a pass out report on her kitchen today. Patient has known history of vertigo is multiple evaluations including urinalysis and throat neurology as an outpatient with inpatient hospitalization as well. Patient has no findings through all this testing does have Antivert at home did take it, currently feels mildly improved is able to stand up and ambulate, patient became significantly c oncerned prior to coming the emergency department that she would be unable to ambulate, she has no headaches no chest pain or shortness of breath no other complaints MD Complaint: dizziness, lightheadedness, difficulty walking -: hour(s) Timing: sudden onset Description: sense of movement, "room spinning" History of Same: No History of Trauma: No Severity: moderate Improves With: remaining still Worsens With: nothing Associated Symptoms: ataxia - Related Data Home Medications Medication Instructions Recorded Confirmed Cholecalciferol [Vitamin D3] 1,000 unit PO DAILY 08/01/17 02/25/22 amLODIPine BESYLATE/BENAZEPRIL 1 cap PO DAILY 08/01/17 02/25/22 [amLODIPine BESYLATE/BENAZEPRIL 5-20 mg] Vit C/E/Zn/Coppr/Lutein/Zeaxan 1 each PO DAILY 07/11/18 02/25/22 [Preservision Areds 2 Softgel] Previous Rx's Medication Instructions Recorded Meclizine [Antivert] 25 mg PO TID PRN #25 tab 02/25/22 Allergies Allergy/AdvReac Type Severity Reaction Status Date / Time Penicillins Allergy Rash/Hives Verified 01/29/23 13:28 Review of Systems ROS Statement: Those systems with pertinent positive or pertinent negative responses have been documented in the HPI. ROS Other: All systems not noted in ROS Statement are negative. Past Medical History Past Medical History: Hypertension, Thyroid Disorder Additional Past Medical History / Comment(s): Osteopenia. 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 History of Any Multi-Drug Resistant Organisms: None Reported Past Surgical History: Breast Surgery, Hysterectomy, Tonsillectomy Additional Past Surgical History / Comment(s): EVELYN BSO in 1993. Breast biopsies. 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 Colonoscopy 2013(4th). Past Anesthesia/Blood Transfusion Reactions: No Reported Reaction Past Psychological History: No Psychological Hx Reported Smoking Status: Never smoker Past Alcohol Use History: None Reported Past Drug Use History: None Reported - Past Family History Mother Family Medical History: Cancer, Coronary Artery Disease (CAD), Diabetes Mellitus Additional Family Medical History / Comment(s): Breast cancer. Maternal 1st cousin had breast cancer. Brother(s) Family Medical History: Coronary Artery Disease (CAD) Sister(s) Family Medical History: Coronary Artery Disease (CAD) General Exam Limitations: no limitations General appearance: alert, in no apparent distress, anxious Head exam: Present: atraumatic, normocephalic, normal inspection Eye exam: Present: normal appearance, PERRL, EOMI, nystagmus. Absent: scleral icterus, conjunctival injection, periorbital swelling ENT exam: Present: normal exam, mucous membranes moist Neck exam: Present: normal inspection. Absent: tenderness, meningismus, lymphadenopathy Respiratory exam: Present: normal lung sounds bilaterally. Absent: respiratory distress, wheezes, rales, rhonchi, stridor Cardiovascular Exam: Present: regular rate, normal rhythm, normal heart sounds. Absent: systolic murmur, diastolic murmur, rubs, gallop, clicks GI/Abdominal exam: Present: soft, normal bowel sounds. Absent: distended, tenderness, guarding, rebound, rigid Extremities exam: Present: normal inspection, full ROM, normal capillary refill. Absent: tenderness, pedal edema, joint swelling, calf tenderness Back exam: Present: normal inspection Neurological exam: Present: alert, oriented X3, CN II-XII intact Psychiatric exam: Present: normal affect, normal mood Skin exam: Present: warm, dry, intact, normal color. Absent: rash Course Vital Signs 01/29/23 01/29/23 13:27 14:26 Temperature 98.4 F Pulse Rate 94 82 Respiratory 20 16 Rate Blood Pressure 148/86 101/86 O2 Sat by Pulse 100 98 Oximetry - Reevaluation(s) Reevaluation #1: 01/29/23 14:12 Records reviewed Reevaluation #2: Patient is able to ambulate without ataxia Reevaluation #3: Patient is informed of results and questions answered Reevaluation #4: 01/29/23 14:11 Was pt. sent in by a medical professional or institution (JACLYN Moore, ROUGE PRESSER, urgent care, hospital, or custodial...) When possible be specific @ -no Did you speak to anyone other than the patient for history (EMS, parent, family, police, friend...)? What history was obtained from this source @ -no Did you review nursing and triage notes (agree or disagree)? Why? @ -agree Are old charts reviewed (outside hosp., previous admission, EMS record, old EKG, old radiological studies, urgent care reports/EKG's, custodial records)? Re port findings @ -yes Differential Diagnosis (chest pain, altered mental status, abdominal pain women, abdominal pain men, vaginal bleeding, weakness, fever, dyspnea, syncope, headache, dizziness, GI bleed, back pain, seizure, CVA, palpatations, mental health, musculoskeletal)? @ -prior EKG interpreted by me (3pts min.). @ -no X-rays interpreted by me (1pt min.). @ -no CT interpreted by me (1pt min.). @ -no U/S interpreted by me (1pt. min.). @ -no What testing was considered but not performed or refused? (CT, X-rays, U/S, labs)? Why? @ -none What meds were considered but not given or refused? Why? @ -none Did you discuss the management of the patient with other professionals (professionals i.e. JACLYN Moore, ROUGE PRESSER, lab, RT, psych nurse, social worker aide, animal anatomist, teacher, staff antisubmarine officer, patient case coordinator)? Give summary @ -no Was smoking cessation discussed for >3mins.? @ -no Was critical care preformed (if so, how long)? @ -no Were there social determinants of health that impacted care today? How? (Homelessness, low income, unemployed, alcoholism, drug addiction, transportation, low edu. Level, literacy, decrease access to med. care, [place] [facility], rehab)? @ -none Was there de-escalation of care discussed even if they declined (Discuss DNR or withdrawal of care, Hospice)? DNR status @ -no What co-morbidities impacted this encounter? (DM, HTN, Smoking, COPD, CAD, Cancer, CVA, ARF, Chemo, Hep., AIDS, mental health diagnosis, sleep apnea, morbid obesity)? @ -none Was patient admitted / discharged? Hospital course, mention meds given and route, prescriptions, significant lab abnormalities, going to OR and other pertinent info. @ - 77 female to the emergency department with recurrent vertiginous symptoms, BPPV. We will not undergo further testing at this patient has exhausted resour emma, patient will be discharged home Discharge Undiagnosed new problem with uncertain prognosis? @ -no Drug Therapy requiring intensive monitoring for toxicity (Heparin, Nitro, Insulin, Cardizem)? @ -no Were any procedures done? @ -no Diagnosis/symptom? @ -Vertigo Acute, or Chronic, or Acute on Chronic? @ -Acute Uncomplicated (without systemic symptoms) or Complicated (systemic symptoms)? @ -Complicated Side effects of treatment? @ -no Exacerbation, Progression, or Severe Exacerbation? @ -exacerbation Poses a threat to life or bodily function? How? (Chest pain, USA, [place], pneumonia, PE, COPD, DKA, ARF, appy, cholecystitis, CVA, Diverticulitis, Homicidal, Suicidal, threat to staff... and all critical care pts) @ -yes if symptoms occur from acute CVA Reevaluation #5: 01/29/23 14:11 Differential Dizziness: Benign paroxysmal positional Vertigo, Menieres disease, otitis media, acoustic neuroma, vertebrobasilar insufficiency, cerebellar stroke, encephalitis, hypovolemic, arrhythmia, coronary artery syndrome, anemia, this is not meant to be an all-inclusive list Medical Decision Making - Medical Decision Making 77 female to the emergency department with recurrent vertiginous symptoms, BPPV. We will not undergo further testing at this patient has exhausted resources, patient will be discharged home Disposition Clinical Impression: Benign paroxysmal positional vertigo, Dizziness Disposition: HOME SELF-CARE Condition: Good Instructions (If sedation given, give patient instructions): Dizziness (ED) Is patient prescribed a controlled substance at d/c from ED?: No Referrals: Keenan Brown DO [Primary Care Provider] - 1-2 days Time of Disposition: 14:00
[2023-01-29 14:34] VITALS: BP 101/86; PULSE 82; RESP 16
== END 2023-01-29 14:28 | disposition home or self-care (01) ==
LOC: EC 13:19
DX: H81.10 Benign paroxysmal vertigo, unspecified ear (principal); I10 Essential (primary) hypertension; Z88.0 Allergy status to penicillin
CPT/HCPCS: 99284

== ENCOUNTER → 2023-05-09 | Outpatient (CLI) | payer MEDICARE ==
[2023-05-09 16:29] LABS: ALT 16 U/L (8-44); AST 21 U/L (13-35); Albumin 4.4 g/dL (3.8-4.9); Albumin/Globulin Ratio 1.33 Ratio (1.60-3.17); Alkaline Phosphatase 86 U/L (41-126); BUN/Creat Ratio 16.88 Ratio (12.00-20.00); Blood Urea Nitrogen 13.5 mg/dL (9.0-27.0); Calcium 9.8 mg/dL (8.7-10.3); Carbon Dioxide 28.2 mmol/L (21.6-31.8); Chloride 100 mmol/L (96-109); Globulin 3.3 g/dL (1.6-3.3); Glucose 123 mg/dL (70-110); Potassium 4.7 mmol/L (3.5-5.5); Sodium 139 mmol/L (135-145); Total Bilirubin 0.4 mg/dL (0.3-1.2); Total Protein 7.7 g/dL (6.2-8.2)
== END | disposition home or self-care (01) ==
LOC: LABWHC1 09:29
PROVIDERS: ATTEND Internal Medicine Endocrinology, Diabetes & Metabolism
DX: Z86.39 Personal history of other endocrine, nutritional and metabolic disease (principal)
CPT/HCPCS: 36415; 80053; 82306; 83970

== ENCOUNTER → 2023-09-20 | Outpatient (CLI) | payer MEDICARE ==
--- NOTE | 2023-10-12 16:03 | CT ---
Patient: Jasmina Henao Ordering Physician: Unknown, Unknown ID: [id number] Phone, Pager: Phone: N/A Pager: N/A : [phone] Age/Gender: 78Y, O Primary Location: N/A Procedure: CT abdomen pelvis w co n Study Date: 09/20/2023 1:05:00 PM EXAMINATION TYPE: CT abdomen pelvis w con DATE OF EXAM: 10/06/2023 COMPARISON: No comparison available on downtime PACS. INDICATION: Acute abdominal pain and abnormal weight loss DLP: 590 mGycm, Automated exposure control for dose reduction was used. CONTRAST: 100 mL of Isovue 300. Study performed with Oral Contrast TECHNIQUE: Axial images were obtained from above the diaphragm to the pubic rami in the axial plane a t 5 mm thick sections. Reconstructed images are reviewed on the computer in the coronal plane. FINDINGS: Limited CT sections are obtained the lung bases. The lung bases are clear. CT ABDOMEN: Liver: Normal Spleen: Normal Pancreas: Normal Adrenal glands: The adrenal glands are normal. Gallbladder: Normal Kidneys: No masses are evident. No hydronephrosis is present. No cysts are present. Delayed images were obtained through the kidneys, which remain unremarkable. Right kidney is malpositioned extendin g into the pelvis. Aorta: Vascular calcification is within the aorta. Inferior vena cava: Normal. CT PELVIS: Loops of bowel within the abdomen and pelvis are normal. Diverticular changes are within the lower co edna. Sigmoid colon appears very redundant. There are loops of bowel which are incompletely distend ed or lack oral contrast limiting their evaluation. Appendix: Not identified. No dilated tubular structure or inflammatory change is evident. Urinary bladder: Normal. Genitourinary structures: Uterus and ovaries are not identified. Osseous structures: No suspicious lytic or sclerotic lesions. Degenerative joint changes are at the r ight hip. Degenerative disc changes in the lower lumbar spine. Facet degenerative changes are within the lumbar spine IMPRESSION: 1. No suspicious abnormality account for abnormal weight loss abdomen pain. 2. Redundant colon with diverticulosis. No definite diverticulitis identified.
== END | disposition home or self-care (01) ==
LOC: RADCTMAIN 10:26
PROVIDERS: ATTEND Family Medicine
DX: R10.0 Acute abdomen (principal); R63.4 Abnormal weight loss; Q43.8 Other specified congenital malformations of intestine; M51.36 Other intervertebral disc degeneration, lumbar region
CPT/HCPCS: 82565; 84520; 74177; 36415; Q9967

== ENCOUNTER → 2023-11-03 | Outpatient (CLI) | payer MEDICARE ==
[2023-11-03 14:33] LABS: African American GFR (CKD) 84 (>60 ml/min/1.73 sqM); Blood Urea Nitrogen 15 mg/dL (7-17); Non-African American GFR(CKD) 73 (>60 ml/min/1.73 sqM)
--- NOTE | 2023-11-03 15:34 | CT ---
EXAMINATION TYPE: CT angio chest, without and with contrast DATE OF EXAM: 11/03/2023 COMPARISON: None HISTORY: 78-year-old female I71.20 Thoracic aortic aneurysm wo rupture. TECHNIQUE: Contiguous axial scanning of the chest before and after the administration of 100ml mL of Isovue 370. Coronal/sagittal reconstructions performed. 3-D reconstructions generated on a dedicated independent workstation. CT DLP: 312.8mGycm. Automatic exposure control utilized for a dose reduction. FINDINGS: The heart is mildly enlarged with trace pericardial fluid. Mild LAD coronary artery calcifications ar e present. Aortic root estimated at 3.7 cm wide. Ascending aorta aneurysmal up to 4.5 cm. Proximal arch aneurysmal up to 4.0 cm. Conventional arch vessel branching anatomy. Upper descending thoracic aorta ectatic at 3.0 cm. Lower descending thoracic aorta normal caliber at 2.4 cm. Prominent 1.2 cm right hilar lymph node probably reactive/post inflammatory. Left hilar node measures up to 9 mm. Otherwise, no thoracic lymphadenopathy by CT size criteria. Biapical pleural parenchymal scarring. There is patchy airspace opacity inferior lingula and some inez rounding mild tree-in-bud opacity. Mild emphysematous change. No pleural effusion. Visualized upper abdomen shows possible mild left-sided hydronephrosis which should be correlated cli nically. Bones: Mild to moderate degenerative disc disease L2-L3. Slight accentuated mid thoracic kyphosis. IMPRESSION: 1. Correlate for inferior lingular pneumonia. Recommend follow-up CT in 3 months to assess for cleara nce and also to assess the mildly enlarged hilar lymph nodes which measure up to 1.2 cm, probably ernesto ctive/post inflammatory. 2. Mild cardiomegaly. COPD with mild emphysema. 3. Ascending aortic aneurysm at 4.5 cm. Proximal arch aneurysm up to 4.0 cm. 4. Possible mild left-sided hydronephrosis partially visualized. Consider renal ultrasound follow-up and correlate for any left-sided renal colic symptoms. [facility], , 11/03/2023 3:31 PM
== END | disposition home or self-care (01) ==
LOC: RADCTMAIN 13:45
PROVIDERS: ATTEND Internal Medicine Interventional Cardiology
DX: I71.20 Thoracic aortic aneurysm, without rupture, unspecified
CPT/HCPCS: 36415; 71275; 82565; 84520

== ENCOUNTER → 2024-02-29 | Outpatient (CLI) | payer MEDICARE ==
--- NOTE | 2024-03-01 22:39 | CT ---
EXAMINATION TYPE: CT chest wo con DATE OF EXAM: 02/29/2024 11:27 AM COMPARISON: None. CLINICAL INDICATION: Female, 78 years old with history of I71.00 DISSECTION OF UNSPECIFIED SITE OF AO RTA, aortic dissection TECHNIQUE: Axial images were obtained at 5 mm thick sections. Reconstructed images are reviewed on [employer] computer in the coronal plane. Contrast used: mL of , (none if empty) Oral contrast used: (none if empty) CT DLP: 113.8 mGycm, Automated exposure control for dose reduction was used. Lack of intravenous contrast limits evaluation for dissection FINDINGS: Portion of the thyroid visualized is normal. There is some mild increased lung markings at the lung apices, stable from comparison. Some mild incr eased lung markings are within the lingula. Some pulmonary fibrosis or chronic change may be present, stable from comparison No enlarged mediastinal or hilar adenopathy is evident. The ascending aorta diameter at the level of the main pulmonary artery is 4.6 cm. The main pulmona ry artery diameter at the bifurcation is 2.[address] sections are obtained through the upper abdomen. Abdomen is essentially unremarkable. IMPRESSION: 1. No acute or chronic dissection identified. Studies without intravenous contrast limiting this eval uation. 2. Ascending thoracic aortic aneurysm measuring 4.6 cm, stable from comparison. 3. Mild increased lung markings appear stable from comparison. [facility], , 03/01/2024 10:37 PM
== END | disposition home or self-care (01) ==
LOC: RADCTMAIN 10:50
PROVIDERS: ATTEND Family Medicine
DX: I71.21 Aneurysm of the ascending aorta, without rupture (principal); J98.4 Other disorders of lung; I71.00 Dissection of unspecified site of aorta
CPT/HCPCS: 71250